=== PATIENT | female | born 2000 | race Caucasian/White ===

== ENCOUNTER → 2023-04-21 17:50 | Outpatient (REF) | payer OTHER, SELFPAY | LOC: RAD 17:50 | PROVIDERS: ATTENDING PHYSICIAN Family Medicine | DX: M79.641 Pain in right hand (principal); M19.049 Primary osteoarthritis, unspecified hand; I73.00 Raynaud's syndrome without gangrene | CPT/HCPCS: 73130 ==

== ENCOUNTER → 2024-02-28 12:33 | Outpatient (REF) | payer OTHER, SELFPAY | LOC: HWRAD 12:33 | PROVIDERS: ATTENDING PHYSICIAN Family Medicine; FAMILY PHYSICIAN Physician Assistant | DX: R10.32 Left lower quadrant pain (principal) | CPT/HCPCS: 76830; 76856 ==